=== PATIENT | male | born 1965 | race American Indian/Alaskan Native ===

== ENCOUNTER 2017-01-08 00:45 | Inpatient (IN) | payer OTHER ==
--- NOTE | 2017-01-08 02:44 | XRay Report ---
FINAL REPORT EXAM: XR CHEST ROUTINE 2V HISTORY: Shortness of Breath TECHNIQUE: PA and lateral views of the chest were submitted. FINDINGS: Heart size mediastinum appear normal. The lungs are clear. Pleural fluid is not seen. The bones and soft tissues well maintained. IMPRESSION: No active chest disease.
[2017-01-08] MEDS ORDERED: ASPIRIN PO ONE (03:06)
--- NOTE | 2017-01-08 03:07 | Emergency Department Report ---
ED Chest Pain HPI - General Chief Complaint: Chest Pain Stated Complaint: CP; SOB Time Seen by Provider: 01/08/17 03:01 Source: patient Mode of arrival: Ambulatory Limitations: No Limitations - History of Present Illness Initial Comments: Patient's 51-year-old male presents with chest pain service chest 4 days. Patient states feels a pressure is 8 out of 10 on a pain scale. No radiations. Patient has a long history of multiple blood clots in his lungs states his doctor took him off L quit approximately 6 months ago. Patient states he feels last time he was diagnosed with a pulmonary embolism. Patient states that the pain is worse with deep breaths and exertion and states the pain is better with leaning forward. MD Complaint: chest pain -: Gradual Onset: during exertion Pain Location: substernal, left chest, right chest Pain Radiation: none Severity: severe Severity scale (0 -10): 8 Quality: sharp Consistency: constant Improves With: rest, leaning foward Worsens With: exertion, movement re: nausea, vomting, dyspnea Other Symptoms: palpitations Treatments Prior to Arrival: aspirin Aspirin use within the Past 7 Days: (1) Yes - Related Data On Oral Contraceptives: No Allergies Allergy/AdvReac Type Severity Reaction Status Date / Time oxycodone Allergy Rash Verified 01/08/17 01:44 Penicillins Allergy Anaphylaxis Verified 01/08/17 01:43 Sulfa (Sulfonamide Allergy Rash Verified 01/08/17 01:43 Antibiotics) Heart Score - HEART Score History: Moderately suspicious EKG: Normal Age: 45-65 Risk factors: > 3 risk factors or hx of atherosclerotic disease Troponin: < normal limit HEART Score: 4 ED Review of Systems ROS: Stated complaint: CP; SOB Other details as noted in HPI Comment: All other systems reviewed and negative Constitutional: no symptoms reported, see HPI Eyes: as per HPI ENT: as per HPI Respiratory: see HPI, shortness of breath, SOB with exertion, SOB at rest Cardiovascular: as per HPI, chest pain, palpitations Endocrine: no symptoms reported Gastrointestinal: as per HPI, nausea, vomiting Genitourinary: as per HPI Musculoskeletal: as per HPI Skin: as per HPI Neurological: as per HPI Psychiatric: as per HPI Hematological/Lymphatic: as per HPI ED Past Medical Hx - Past Medical History Previous Medical History?: Yes Hx Hypertension: No Hx CVA: No Hx Heart Attack/AMI: No Hx Congestive Heart Failure: Yes Hx Diabetes: No Hx Deep Vein Thrombosis: Yes (bilateral legs) Hx Pulmonary Embolism: Yes (multiple clots both lungs) Hx Liver Disease: No Hx Renal Disease: No Hx Seizures: No Hx Kidney Stones: No Hx COPD: No Additional medical history: Traumatic injury after falling off of scaffolding with more than 20 broken bones, 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 - Surgical History Past Surgical History?: Yes Additional Surgical History: Multiple traumatic fractures after fall off of scaffolding - Social History Smoking Status: Never Smoker ED Physical Exam - General Limitations: No Limitations General appearance: alert, in no apparent distress - Head Head exam: Present: atraumatic, normocephalic - Eye Eye exam: Present: normal appearance - ENT ENT exam: Present: mucous membranes moist - Neck Neck exam: Present: normal inspection - Respiratory Respiratory exam: Present: normal lung sounds bilaterally. Absent: respiratory distress - Cardiovascular Cardiovascular Exam: Present: regular rate, normal rhythm. Absent: systolic murmur, diastolic murmur, rubs, gallop - GI/Abdominal GI/Abdominal exam: Present: soft, normal bowel sounds - Rectal Rectal exam: Present: deferred - Extremities Exam Extremities exam: Present: normal inspection - Back Exam Back exam: Present: normal inspection - Neurological Exam Neurological exam: Present: alert, oriented X3 - Psychiatric Psychiatric exam: Present: normal affect, normal mood - Skin Skin exam: Present: warm, dry, intact, normal color. Absent: rash ED Course Vital Signs 01/08/17 01/08/17 01/08/17 01:54 02:19 02:20 Temperature 98.4 F 98 F Pulse Rate 72 69 Respiratory 24 18 18 Rate Blood Pressure 136/90 Blood Pressure 145/96 [Left] O2 Sat by Pulse 98 100 Oximetry JULIA score - Julia Score Age > 65: (0) No Aspirin use within the Past 7 Days: (1) Yes 3 or more CAD Risk Factors: (0) No 2 or more Angina events in past 24 hrs: (0) No Known CAD with more than 50% Stenosis: (0) No Elevated Cardiac Markers: (0) No ST Deviation Greater than 0.5mm: (0) No JULIA Score: 1 ED Medical Decision Making - Lab Data Result diagrams: 01/08/17 02:44 01/08/17 02:44 - EKG Data -: EKG Interpreted by Me EKG shows normal: sinus rhythm Rate: normal - EKG Data Interpretation: no acute changes, normal EKG - Radiology Data Radiology results: report reviewed - Medical Decision Making Hospitalists consult for admission. Hospitalist agreed to admit - Differential Diagnosis pe, cp. sob, acs Critical care attestation.: If time is entered above; I have spent that time in minutes in the direct care of this critically ill patient, excluding procedure time. ED Disposition Clinical Impression: Chest pain, Shortness of breath Disposition: OP ADMIT IP TO THIS HOSP Is pt being admited?: Yes Does the pt Need Aspirin: No
[2017-01-08 03:12] LABS: Basophils % (Auto) 0.7 % (0.0-1.8); Eosinophils % (Auto) 6.1 % (0.0-4.3); Hematocrit 42.4 % (35.5-45.6); Hemoglobin 14.4 gm/dl (11.8-15.2); Mean Corpuscular HGB Conc 34 % (32-34); Mean Corpuscular Hemoglobin 33 pg (28-32); Mean Corpuscular Volume 97 fl (84-94); Platelet Count 151 K/mm3 (140-440); Red Blood Count 4.39 M/mm3 (3.65-5.03); Red Cell Distribution Width 14.5 % (13.2-15.2); White Blood Count 6.3 K/mm3 (4.5-11.0)
[2017-01-08 03:15] LABS: Anion Gap 18 mmol/L; BUN/Creatinine Ratio 14; Blood Urea Nitrogen 11 mg/dL (9-20); Calcium 9.1 mg/dL (8.4-10.2); Carbon Dioxide 27 mmol/L (22-30); Chloride 99.8 mmol/L (98-107); Glucose 102 mg/dL (75-100); Potassium 4.6 mmol/L (3.6-5.0); Sodium 140 mmol/L (137-145)
[2017-01-08 03:23] LABS: INR 0.84 (0.87-1.13); Partial Thromboplastin Time 24.9 Sec. (24.2-36.6)
[2017-01-08] MEDS ORDERED: MILK OF MAGNESIA PO PRN (07:46)
[2017-01-08] MEDS ORDERED: DULCOLAX PR PRN (07:46)
[2017-01-08] MEDS ORDERED: ZOFRAN IV PRN (07:46)
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
[2017-01-08] MEDS ORDERED: NACL ONE (08:28)
--- NOTE | 2017-01-08 10:55 | Cat Scan Report ---
CTA chest: History: Chest pain. Findings: No evidence of aneurysm or pulmonary embolism. No mediastinal mass. No pleural pericardial effusion. Normal lung parenchyma. No consolidation, nodularity or mass. Impression: Essentially negative CTA chest.
[2017-01-08] MEDS ORDERED: NITROSTAT SL PRN (10:58)
[2017-01-08] MEDS ORDERED: SODIUM CHLORIDE FLUSH SYRINGE 10 ML IV PRN (10:58)
[2017-01-08] MEDS: NITRO-BID 2% TP SCH ×2 (14:05→18:26)
[2017-01-08] MEDS: HEPARIN SUB-Q SCH ×2 (14:05→21:18)
[2017-01-08] MEDS: TYLENOL PO PRN (18:31)
[2017-01-08] MEDS: MORPHINE IV PRN (21:17)
[2017-01-09] MEDS: MORPHINE IV PRN ×2 (01:53→11:31)
[2017-01-09] MEDS: TYLENOL PO PRN (05:45)
[2017-01-09] MEDS: HEPARIN SUB-Q SCH (05:45)
[2017-01-09 06:30] LABS: Eosinophils % (Auto) 8.1 % (0.0-4.3); Hematocrit 42.4 % (35.5-45.6); Hemoglobin 14.4 gm/dl (11.8-15.2); Mean Corpuscular HGB Conc 34 % (32-34); Mean Corpuscular Hemoglobin 32 pg (28-32); Mean Corpuscular Volume 95 fl (84-94); Platelet Count 145 K/mm3 (140-440); Red Blood Count 4.45 M/mm3 (3.65-5.03); Red Cell Distribution Width 14.6 % (13.2-15.2); White Blood Count 4.6 K/mm3 (4.5-11.0)
[2017-01-09] MEDS: NITRO-BID 2% TP SCH (06:39)
[2017-01-09 06:41] LABS: Anion Gap 17 mmol/L; BUN/Creatinine Ratio 12; Blood Urea Nitrogen 7 mg/dL (9-20); Carbon Dioxide 28 mmol/L (22-30); Chloride 102.2 mmol/L (98-107); Glucose 93 mg/dL (75-100); Potassium 4.8 mmol/L (3.6-5.0); Sodium 142 mmol/L (137-145)
[2017-01-09] MEDS ORDERED: LEXISCAN IV ONE ×2 (08:32→09:00)
[2017-01-09 12:14] VITALS: BP 138/88
[2017-01-09] MEDS ORDERED: PROTONIX PO SCH (15:00)
--- NOTE | 2017-01-09 15:00 | Discharge Summary ---
Providers - Providers Date of Admission: 01/08/17 07:46 Date of discharge: 01/09/17 Attending physician: LIDIA HOFF Primary care physician: JOLEEN ALCANTAR MD Hospitalization Condition: Fair Disposition: DC-01 TO HOME OR SELFCARE - Discharge Diagnoses (1) Hiatal hernia with GERD without esophagitis Status: Acute Exam - Constitutional Vitals: Temp Pulse Resp BP Pulse Ox 98.5 F 63 20 143/92 97 01/09/17 11:23 01/09/17 11:29 01/09/17 11:23 01/09/17 11:29 01/09/17 11:23 Plan Activity: no restrictions Diet: low fat, low cholesterol, low salt Additional Instructions: 1.Follow up with PCP or [facility] in 1 week Follow up with: PRIMARY CAREMD [Primary Care Provider] - 7 Days
--- NOTE | 2017-01-10 00:10 | Treadmill Report ---
NUCLEAR PERFUSION SCAN REFERRING PHYSICIAN: Hospitalist Service, Dr. Suárez. PROTOCOL: The patient was brought to the stress lab in a postabsorptive state and given 10 mCi of technetium 99m at rest. The patient underwent rest imaging. The patient underwent Lexiscan stress test per standard protocol. At peak stress, the patient was given 26 mCi of technetium 99m. Shortly thereafter, the patient underwent stress imaging. Raw imaging reveals mild GI artifact. No significant motion artifact. SPECT imaging examined carefully in the horizontal long axis, vertical long axis, and short axis views. There is normal homogenous uptake of radioisotope in all reported segments. No evidence of a significant fixed or reversible perfusion defects suggestive of prior infarction or ischemia. Gated wall motion reveals normal systolic thickening, calculated ejection fraction of 60%. No TID. CONCLUSIONS: 1. Normal myocardial perfusion scan without evidence of active ischemia or prior infarction. 2. Normal left ventricular systolic performance without evidence of transient ischemic dilatation or stress-induced segmental wall motion abnormalities. JOB# [id number] ZANDER/PACO
== END 2017-01-09 17:48 | disposition home or self-care (01) | DRG 392 ==
LOC: ED 00:45 → 4A 07:46
PROVIDERS: ADMIT Internal Medicine; ATTEND Internal Medicine
DX: K21.9 Gastro-esophageal reflux disease without esophagitis (principal); I50.9 Heart failure, unspecified; K44.9 Diaphragmatic hernia without obstruction or gangrene; Z86.711 Personal history of pulmonary embolism; Z79.01 Long term (current) use of anticoagulants; Z88.5 Allergy status to narcotic agent; Z88.0 Allergy status to penicillin; Z88.2 Allergy status to sulfonamides; Z86.718 Personal history of other venous thrombosis and embolism
CPT/HCPCS: 36415; 71020; 71275; 78452; 80048; 83880; 84484; 85025; 85379; 85610; 85730; 93005; 93010; 93017; A9502; J1644; J2270; J2785; Q9967

== ENCOUNTER 2019-11-15 05:01 | Emergency (ER) | payer OTHER ==
[2019-11-15] MEDS ORDERED: HYDROmorphone 1 MG/1 ML INJ IV ONE ×3 (06:33→11:32)
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
[2019-11-15] MEDS ORDERED: TERBUTALINE 1 MG/1 ML INJ SUB-Q ONE ×2 (06:59→08:05)
[2019-11-15 07:10] LABS: Hemoglobin 14.7 gm/dl (11.8-15.2); Mean Corpuscular HGB Conc 34 % (32-34); Mean Corpuscular Volume 95 fl (84-94); Platelet Count 172 K/mm3 (140-440); Red Blood Count 4.51 M/mm3 (3.65-5.03); Red Cell Distribution Width 15.5 % (13.2-15.2)
[2019-11-15 07:20] LABS: INR 0.92 (0.87-1.13)
[2019-11-15 07:32] LABS: Alanine Aminotransferase 11 units/L (7-56); Albumin 4.7 g/dL (3.9-5); BUN/Creatinine Ratio 20; Blood Urea Nitrogen 16 mg/dL (9-20); Calcium 9.8 mg/dL (8.4-10.2); Hemolysis Index 6
[2019-11-15] MEDS ORDERED: LIDOCAINE (2%) 20 MG/1 ML VIAL 20 ML MDV INFILTRATI ONE (08:09)
[2019-11-15 08:24] VITALS: BP 175/97
[2019-11-15] MEDS ORDERED: PHENYLEPHRINE 1 MG, SODIUM CHLORIDE P/F VIAL 10 ML 9.9 ML IJ**NOT IV NR (08:30)
[2019-11-15] MEDS ORDERED: POVIDONE-IODINE OINTMENT 28.35 GM TP SCH (09:00)
== END 2019-11-15 11:35 | disposition other institution (70) ==
LOC: ED 05:01
DX: N48.30 Priapism, unspecified (principal); R03.0 Elevated blood-pressure reading, without diagnosis of hypertension; I50.9 Heart failure, unspecified; Z86.718 Personal history of other venous thrombosis and embolism; Z86.711 Personal history of pulmonary embolism; Z98.890 Other specified postprocedural states; Z79.899 Other long term (current) drug therapy; Z88.0 Allergy status to penicillin; Z88.2 Allergy status to sulfonamides; Z88.8 Allergy status to other drugs, medicaments and biological substances
CPT/HCPCS: 36415; 54220; 80053; 82550; 83735; 85027; 85610; 96372; 96374; 96376; 99285; J1170; J2370; J3105

== ENCOUNTER 2019-12-10 18:47 | Emergency (ER) | payer OTHER ==
--- NOTE | 2019-12-10 18:53 | Emergency Department Report ---
Blank Doc - Documentation Documentation: 54-year-old male that presents with abdominal pain with n/v. This initial assessment/diagnostic orders/clinical plan/treatment(s) is/are subject to change based on patient's health status, clinical progression and re- assessment by fellow clinical providers in the ED. Further treatment and workup at subsequent clinical providers discretion. Patient/guardians urged not to elope from the ED as their condition may be serious if not clinically assessed and managed. Initial orders include: 1- Patient sent to [facility] for further evaluation and treatment 2- labs 3- UA
[2019-12-10 21:00] LABS: Basophils % (Auto) 0.5 % (0.0-1.8); Eosinophils % (Auto) 0.3 % (0.0-4.3); Hematocrit 45.3 % (35.5-45.6); Hemoglobin 14.9 gm/dl (11.8-15.2); Lymphocytes # (Auto) 0.6 K/mm3 (1.2-5.4); Lymphocytes % (Auto) 8.5 % (13.4-35.0); Mean Corpuscular HGB Conc 33 % (32-34); Mean Corpuscular Volume 99 fl (84-94); Monocytes # (Auto) 0.6 K/mm3 (0.0-0.8); Monocytes % (Auto) 8.2 % (0.0-7.3); Platelet Count 214 K/mm3 (140-440); Red Blood Count 4.58 M/mm3 (3.65-5.03); Red Cell Distribution Width 16.8 % (13.2-15.2)
[2019-12-10 21:24] LABS: Alanine Aminotransferase 20 units/L (7-56); Albumin 4.5 g/dL (3.9-5); BUN/Creatinine Ratio 13; Blood Urea Nitrogen 10 mg/dL (9-20); Hemolysis Index 6
[2019-12-11] MEDS ORDERED: SODIUM CHLORIDE 0.9% 1000 ML 1,000 ML IV ONE (01:32)
[2019-12-11] MEDS ORDERED: KETOROLAC 30 MG/1 ML INJ IV ONE ×3 (01:36→06:49)
[2019-12-11] MEDS ORDERED: ONDANSETRON 4 MG/2 ML INJ IV ONE ×2 (01:36→05:12)
--- NOTE | 2019-12-11 02:44 | Emergency Department Report ---
ED Abdominal Pain HPI - General Chief Complaint: Abdominal Pain Stated Complaint: SOB/ABD PAIN/N/BACK PAIN Time Seen by Provider: 12/10/19 18:52 Source: patient Mode of arrival: Ambulatory Limitations: No Limitations - History of Present Illness Initial Comments: Patient is a 54-year-old -[place] male with history of GERD, Priapism, DVT, and PE who presents for left upper quadrant abdominal pain x2 days. Patient states associated nausea vomiting x today. He denies fever, chills, cough, dizziness, lightheadedness. States GERD is tx'd with pepcid po, not had in a while. Followed by Dr Muro. Complaint: abdominal pain Migration to: LUQ Severity scale (0 -10): 5 Consistency: constant Improves With: nothing Worsens With: eating - Related Data Previous Rx's Medication Instructions Recorded Last Taken Type Famotidine [Pepcid] 20 mg PO BID #30 tablet 01/09/17 Unknown Rx Famotidine [Pepcid] 20 mg PO BID #30 tablet 12/11/19 Unknown Rx Ketorolac [Toradol] 10 mg PO Q6H PRN #12 tablet 12/11/19 Unknown Rx Tamsulosin [Flomax] 0.4 mg PO QDAY #14 cap 12/11/19 Unknown Rx levoFLOXacin [Levaquin TAB] 500 mg PO QDAY #10 tablet 12/11/19 Unknown Rx Allergies Allergy/AdvReac Type Severity Reaction Status Date / Time oxycodone Allergy Severe Rash Verified 11/15/19 07:44 Penicillins Allergy Severe Anaphylaxis Verified 11/15/19 07:44 Sulfa (Sulfonamide Allergy Severe Rash Verified 11/15/19 07:44 Antibiotics) phenolphthalein Allergy Rash Uncoded 11/15/19 07:45 ED Review of Systems ROS: Stated complaint: SOB/ABD PAIN/N/BACK PAIN Other details as noted in HPI Constitutional: denies: chills, fever Eyes: denies: eye pain, eye discharge, vision change ENT: denies: ear pain, throat pain Respiratory: denies: cough, shortness of breath, wheezing Cardiovascular: denies: chest pain, palpitations Endocrine: no symptoms reported Gastrointestinal: abdominal pain, nausea, vomiting. denies: diarrhea, constipation, melena Genitourinary: denies: urgency, dysuria Musculoskeletal: denies: back pain, joint swelling, arthralgia Skin: denies: rash, lesions Neurological: denies: headache, weakness, paresthesias Psychiatric: denies: anxiety, depression Hematological/Lymphatic: denies: easy bleeding, easy bruising ED Past Medical Hx - Past Medical History Previous Medical History?: Yes Hx Hypertension: No Hx CVA: No Hx Heart Attack/AMI: No Hx Congestive Heart Failure: Yes Hx Diabetes: No Hx Deep Vein Thrombosis: Yes (bilateral legs) Hx Pulmonary Embolism: Yes (multiple clots both lungs) Hx Liver Disease: No Hx Renal Disease: No Hx Seizures: No Hx Kidney Stones: No Hx Asthma: No Hx COPD: No Additional medical history: Traumatic injury after falling off of scaffolding with more than 20 broken bones, 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 - Surgical History Past Surgical History?: Yes Additional Surgical History: Multiple traumatic fractures after fall off of scaffolding - Social History Smoking Status: Former Smoker - Medications Home Medications: Home Medications Medication Instructions Recorded Confirmed Last Taken Type Famotidine [Pepcid] 20 mg PO BID #30 tablet 01/09/17 Unknown Rx Famotidine [Pepcid] 20 mg PO BID #30 tablet 12/11/19 Unknown Rx Ketorolac [Toradol] 10 mg PO Q6H PRN #12 tablet 12/11/19 Unknown Rx Tamsulosin [Flomax] 0.4 mg PO QDAY #14 cap 12/11/19 Unknown Rx levoFLOXacin [Levaquin TAB] 500 mg PO QDAY #10 tablet 12/11/19 Unknown Rx ED Physical Exam - General Limitations: No Limitations General appearance: alert, in no apparent distress - Head Head exam: Present: atraumatic, normocephalic - Eye Eye exam: Present: normal appearance - ENT ENT exam: Present: mucous membranes moist - Neck Neck exam: Present: normal inspection - Respiratory Respiratory exam: Present: normal lung sounds bilaterally. Absent: respiratory distress, wheezes, stridor, chest wall tenderness - Cardiovascular Cardiovascular Exam: Present: regular rate, normal rhythm, normal heart sounds. Absent: systolic murmur, diastolic murmur, rubs, gallop - GI/Abdominal GI/Abdominal exam: Present: soft, normal bowel sounds. Absent: distended, tenderness, guarding, rebound, rigid, bruit, hernia - Rectal Rectal exam: Present: deferred - Extremities Exam Extremities exam: Present: normal inspection, full ROM. Absent: tenderness - Back Exam Back exam: Present: normal inspection, full ROM. Absent: tenderness, CVA tenderness (R), CVA tenderness (L) - Neurological Exam Neurological exam: Present: alert, oriented X3, CN II-XII intact, normal gait - Psychiatric Psychiatric exam: Present: normal affect, normal mood - Skin Skin exam: Present: warm, dry, intact, normal color. Absent: rash ED Course Vital Signs 12/10/19 12/11/19 18:54 04:36 Temperature 99.3 F Pulse Rate 83 68 Respiratory 20 17 Rate Blood Pressure 147/97 [Right] O2 Sat by Pulse 83 L 98 Oximetry ED Medical Decision Making - Lab Data Result diagrams: 12/10/19 20:45 12/10/19 20:45 Labs 12/10/19 12/10/19 20:45 20:45 WBC 6.8 RBC 4.58 Hgb 14.9 Hct 45.3 MCV 99 H MCH 33 H MCHC 33 RDW 16.8 H Plt Count 214 Lymph % (Auto) 8.5 L [place] % (Auto) 8.2 H Eos % (Auto) 0.3 Baso % (Auto) 0.5 Lymph # (Auto) 0.6 L [place] # (Auto) 0.6 Eos # (Auto) 0.0 Baso # (Auto) 0.0 Seg Neutrophils % 82.5 H Seg Neutrophils # 5.6 Sodium 139 Potassium 4.1 Chloride 96.9 L Carbon Dioxide 27 Anion Gap 19 BUN 10 Creatinine 0.8 Estimated GFR > 60 BUN/Creatinine Ratio 13 Glucose 115 H Calcium 10.0 Total Bilirubin 0.20 AST 24 ALT 20 Alkaline Phosphatase 77 Total Protein 7.6 Albumin 4.5 Albumin/Globulin Ratio 1.5 Lipase 28 - EKG Data EKG shows normal: sinus rhythm Rate: normal - EKG Data When compared to previous EKG there are: no significant change Interpretation: no acute changes, normal EKG (Normal EKG, no STEMI, EKG interp by ed attending. ) - Radiology Data Radiology results: report reviewed, image reviewed Findings Reporting MD: Ty Bourne Dictation Time: December 11, 2019 04:58 Trans criptionist: Not available Solar Consultant Date: CHEST 1 VIEW 5:33 AM INDICATION / CLINICAL INFORMATION: Shortness of breath and fever. Abdominal pain with nausea and vomiting. COMPARISON: 01/08/17. FINDINGS: SUPPORT DEVICES: None. HEART / MEDIASTINUM: The heart size and pulmonary vasculature are normal. LUNGS / PLEURA: No significant pulmonary or pleural abnormality. No pneumothorax. ADDITIONAL FINDINGS: No significant additional findings. IMPRESSION: No acute findings. Signer Name: Ty Bourne MD Signed: 12/11/2019 4:58 AM Workstation Name: [id number] Findings Reporting MD: Ty Bourne Dictation Time: December 11, 2019 05:34 Pool Finisher: Not available Solar Consultant Date: CT ANGIOGRAPHY OF THE CHEST WITH INTRAVENOUS CONTRAST AND MULTIPLANAR MIP R ECONSTRUCTIONS INDICATION / CLINICAL INFORMATION: Chest pain and shortness of breath. Prior history of PTE. TECHNIQUE: Axial CT images were obtained after injection of 100 cc Omnipaque 350 IV contrast using CTA protocol. 3 plane MIP / 3D reconstructions were produced. All CT scans at this location are performed using CT dose reduction for ALARA by means of automated exposure control. COMPARISON: 01/08/17. FINDINGS: There is excellent opacification of the pulmonary arterial system bilaterally without intraluminal filling defect suggest acute PTE. The thoracic aorta is normal in caliber without dissection. There is mild coronary artery calcification. The tracheobronchial tree is normal. The lung parenchyma is clear. There is no evidence of adenopathy or effusion. There is mild right pelvocaliectasis. The visualized upper abdomen is otherwise normal. There is mild spondylosis. IMPRESSION: 1. No evidence of acute PTE. 2. Mild right pelvocaliectasis. Signer Name: Ty Bourne MD Signed: 12/11/2019 5:34 AM Workstation Name: [id number] Findings Reporting : Ty Bourne Dictation Time: December 11, 2019 05:38 Pool Finisher: Not available Solar Consultant Date: CT OF THE ABDOMEN AND PELVIS WITH INTRAVENOUS CONTRAST INDICATION / CLINICAL INFORMATION: Abdominal pain. TECHNIQUE: The patient received 100 cc Omnipaque [address] scans at this location are performed using CT dose reduction for ALARA by means of automated exposure control. COMPARISON: None available. FINDINGS: ABDOMEN: There is mild right pelvocaliectasis, ureterectasis and perinephric/periureteral soft tissue stranding. There is a 3 mm calculus in the proximal right ureter at the L3-4 level on the right. The liver, spleen, gallbladder, bile ducts, pancreas, adrenal glands and bowel demonstrate no significant abnormality. No adenopathy is seen. PELVIS: The distal ureters and urinary bladder are normal. The prostate gland is only mildly enlarged. Calcification of the vas deferens bilaterally can be seen with diabetes. There are multiple left colonic diverticula without acute inflammation. A normal appendix is present. I do not identify a hernia. No acute osseous abnormality is seen. IMPRESSION: 3 mm calculus in the right ureter at the L3-4 level is causing mild hydronephrosis. Signer Name: Ty Bourne MD Signed: 12/11/2019 5:38 AM Workstation Name: [id number] - Medical Decision Making pt advises symptoms are improved, chest x-ray normal no infiltrates no opacities, EKG normal sinus rhythm no ST elevated [place] EKG interpreted by ED attending. Troponin was less than 0.01 ,heart score is 0, Wells score was 3, for previous PE, CTA study was done negative for PE, patient now complains of right-sided abdominal wall pain. CT: ABD Pelvis: 3mm right urethral stone, plan: tx for renal stone, levaquin, toradol po, Continue Pepcid as previously prescribed, moist heat therapy, continue to hydrate, follow-up with Dr. Muro as scheduled in 2 to 3 days, follow up with GI, and urology as directed.. Return to emergency department should symptoms worsen. Patient verbalizes agreement and understanding with discharge plan. Patient is DC to home in stable condition at this time. Critical care attestation.: If time is entered above; I have spent that time in minutes in the direct care of this critically ill patient, excluding procedure time. ED Disposition Clinical Impression: Shortness of breath, Urethral calculus Nausea and vomiting Qualifiers: Vomiting type: unspecified Vomiting Intractability: non-intractable Qualified Code(s): R11.2 - Nausea with vomiting, unspecified Disposition: DC-01 TO HOME OR SELFCARE Is pt being admited?: No Does the pt Need Aspirin: No Condition: Stable Instructions: Gastroesophageal Reflux Disease (ED), Kidney Stones (ED) Prescriptions: Tamsulosin [Flomax] 0.4 mg PO QDAY #14 cap levoFLOXacin [Levaquin TAB] 500 mg PO QDAY #10 tablet Famotidine [Pepcid] 20 mg PO BID #30 tablet Ketorolac [Toradol] 10 mg PO Q6H PRN #12 tablet PRN Reason: Pain Referrals: [facility] [Provider Group] - 3-5 Days GUI LINDSAY MD [Staff Physician] - 3-5 Days VALENTE LEWIS MD [Staff Physician] - 3-5 Days Forms: Work/School Release Form(ED) Time of Disposition: 06:52
[2019-12-11 04:41] LABS: Bilirubin,Urine NEG (Negative); Blood,Urine MOD (Negative); Color,Urine Yellow (Yellow); Mucus,Urine FEW /HPF; Urobilinogen,Urine < 2.0 mg/dL (<2.0)
[2019-12-11 04:42] LABS: RBC,Urine > 182.0 /HPF (0.0-6.0)
[2019-12-11] MEDS ORDERED: MORPHINE 4 MG/1 ML INJ IV ONE (05:12)
[2019-12-11 05:58] LABS: INR 0.94 (0.87-1.13)
[2019-12-11 05:59] LABS: Partial Thromboplastin Time 24.7 Sec. (24.2-36.6)
--- NOTE | 2019-12-11 06:03 | XRay Report ---
CHEST 1 VIEW 5:33 AM INDICATION / CLINICAL INFORMATION: Shortness of breath and fever. Abdominal pain with nausea and vomiting. COMPARISON: 01/08/17. FINDINGS: SUPPORT DEVICES: None. HEART / MEDIASTINUM: The heart size and pulmonary vasculature are normal. LUNGS / PLEURA: No significant pulmonary or pleural abnormality. No pneumothorax. ADDITIONAL FINDINGS: No significant additional findings. IMPRESSION: No acute findings. Signer Name: Ty Bourne MD Signed: 12/11/2019 5:58 AM Workstation Name: [id number]
--- NOTE | 2019-12-11 06:38 | Cat Scan Report ---
CT ANGIOGRAPHY OF THE CHEST WITH INTRAVENOUS CONTRAST AND MULTIPLANAR MIP RECONSTRUCTIONS INDICATION / CLINICAL INFORMATION: Chest pain and shortness of breath. Prior history of PTE. TECHNIQUE: Axial CT images were obtained after injection of 100 cc Omnipaque 350 IV contrast using CTA protocol. 3 plane MIP / 3D reconstructions were produced. All CT scans at this location are performed using CT dose reduction for ALARA by means of automated exposure control. COMPARISON: 01/08/17. FINDINGS: There is excellent opacification of the pulmonary arterial system bilaterally without intraluminal fi lling defect suggest acute PTE. The thoracic aorta is normal in caliber without dissection. There is mild coronary artery calcification. The tracheobronchial tree is normal. The lung parenchyma is clear. There is no evidence of adenopathy or effusion. There is mild right pelvocaliectasis. The visualized upper abdomen is otherwise normal. There is mild spondylosis. IMPRESSION: 1. No evidence of acute PTE. 2. Mild right pelvocaliectasis. Signer Name: Ty Bourne MD Signed: 12/11/2019 6:34 AM Workstation Name: [id number]
--- NOTE | 2019-12-11 06:42 | Cat Scan Report ---
CT OF THE ABDOMEN AND PELVIS WITH INTRAVENOUS CONTRAST INDICATION / CLINICAL INFORMATION: Abdominal pain. TECHNIQUE: The patient received 100 cc Omnipaque [address] scans at this location are performed using CT dose reduction for ALARA by means of automated exposure control. COMPARISON: None available. FINDINGS: ABDOMEN: There is mild right pelvocaliectasis, ureterectasis and perinephric/periureteral soft tissue stranding. There is a 3 mm calculus in the proximal right ureter at the L3-4 level on the right. The liver, spleen, gallbladder, bile ducts, pancreas, adrenal glands and bowel demonstrate no significan t abnormality. No adenopathy is seen. PELVIS: The distal ureters and urinary bladder are normal. The prostate gland is only mildly enlarged . Calcification of the vas deferens bilaterally can be seen with diabetes. There are multiple left co lonic diverticula without acute inflammation. A normal appendix is present. I do not identify a herni a. No acute osseous abnormality is seen. IMPRESSION: 3 mm calculus in the right ureter at the L3-4 level is causing mild hydronephrosis. Signer Name: Ty Bourne MD Signed: 12/11/2019 6:38 AM Workstation Name: [id number]
[2019-12-11] MEDS ORDERED: levoFLOXacin 500 MG TAB PO ONE (06:48)
[2019-12-11] MEDS ORDERED: TAMSULOSIN 0.4 MG CAP PO ONE (07:00)
[2019-12-11 07:29] VITALS: BP 134/108
== END 2019-12-11 07:40 | disposition home or self-care (01) ==
LOC: ED 18:47
DX: N21.1 Calculus in urethra (principal); R06.02 Shortness of breath; R11.2 Nausea with vomiting, unspecified; I50.9 Heart failure, unspecified; Z86.718 Personal history of other venous thrombosis and embolism; Z86.711 Personal history of pulmonary embolism; Z98.890 Other specified postprocedural states; Z87.891 Personal history of nicotine dependence; Z79.2 Long term (current) use of antibiotics; Z79.899 Other long term (current) drug therapy; Z88.0 Allergy status to penicillin; Z88.2 Allergy status to sulfonamides; Z88.8 Allergy status to other drugs, medicaments and biological substances
CPT/HCPCS: 36415; 71045; 71275; 74177; 80053; 81001; 83690; 84484; 85025; 85610; 85730; 93005; 96361; 96374; 96375; 96376; 99284; J1885; J2270; J2405; J7030; Q9967